=== PATIENT | male | born 1965 | race Caucasian/White ===

== ENCOUNTER 2024-01-17 13:07 | Inpatient (IN) | payer OTHER ==
[2024-01-17 14:20] VITALS: BMI 23.9
[2024-01-17] MEDS ORDERED: guaiFENesin 600 MG TABLET.ER (FP) PO PRN (18:25)
[2024-01-17] MEDS ORDERED: BENZONATATE 200 MG CAPSULE PO PRN (18:25)
[2024-01-17] MEDS ORDERED: IBUPROFEN 400 MG TABLET (FP) PO PRN (18:25)
[2024-01-17] MEDS ORDERED: ACETAMINOPHEN 325 MG TABLET (FP) PO PRN (18:25)
[2024-01-17] MEDS ORDERED: hydrOXYzine PAMOATE 25 MG CAPSULE (FP) PO PRN (18:25)
[2024-01-17] MEDS ORDERED: IBUPROFEN 600 MG TABLET (FP) PO PRN (18:25)
[2024-01-17] MEDS ORDERED: NICOTINE POLACRILEX 2 MG GUM BUC PRN (18:25)
[2024-01-17] MEDS ORDERED: MAG HYDROX/AL HYDROX/SIMETH 30 ML UNIT-DOSE CUP PO PRN (18:25)
[2024-01-17] MEDS ORDERED: POLYETHYLENE GLYCOL (HEALTHYLAX) 3350 17 GM PACKET PO PRN (18:25)
[2024-01-17] MEDS ORDERED: MAGNESIUM HYDROX 2400MG/30ML ORAL SUSPENSION 30 ML CUP PO PRN (18:25)
[2024-01-17] MEDS ORDERED: P-EPHED 60MG/TRIPROLIDI 2.5MG TABLET PO PRN (18:25)
[2024-01-17] MEDS ORDERED: BENZOCAINE/MENTHOL (CHLORASEPTIC ) LOZENGE MM PRN (18:25)
[2024-01-17] MEDS ORDERED: LOPERAMIDE HCL 2 MG CAPSULE PO PRN (18:25)
[2024-01-17] MEDS ORDERED: HYDROCORTISONE 0.5% TOPICAL CREAM 30 GM TUBE TP PRN (18:27)
[2024-01-17] MEDS ORDERED: levETIRAcetam 500 MG TABLET (FP) PO ONE (22:57)
[2024-01-17] MEDS ORDERED: MELATONIN 5 MG TABLETS ONE (22:58)
[2024-01-17] MEDS: THIAMINE HCL 100 MG TABLET (FP) PO SCH (23:04)
[2024-01-17] MEDS: MELATONIN 5 MG TABLETS PO SCH (23:04)
[2024-01-17] MEDS: levETIRAcetam 500 MG TABLET (FP) PO SCH (23:04)
[2024-01-17] MEDS: TUBERCULIN PPD 5 TU/0.1ML SYRINGE (IN PATIENT USE ONLY) ID ONE ×2 (23:32→23:33)
[2024-01-18] MEDS: PRENATAL VITAMINS W/ FOLIC ACID TABLET (FP) PO SCH (09:26)
[2024-01-18] MEDS: ACYCLOVIR 400 MG TABLET PO SCH (10:13)
[2024-01-18 13:02] LABS: HEMATOCRIT 29.6 % (35.4-49); HEMOGLOBIN 9.6 GM/dL (11.7-16.9); MCH 27.1 pg (25.7-33.7); MCHC 32.3 g/dl (32.0-35.9); MEAN CELL VOLUME 83.7 fl (80-96); MEAN PLT VOLUME 6.9 fl (7.5-11.1); PLATELET COUNT 425 10^3/uL (134-434); RBC 3.54 M/mm3 (4.00-5.60); RDW 17.3 % (11.9-15.9); WHITE BLOOD COUNT 5.7 K/mm3 (4.0-10.0)
[2024-01-18 13:18] LABS: POTASSIUM 4.3 mmol/L (3.5-5.1)
[2024-01-18 13:44] LABS: CALCIUM 7.9 mg/dL (8.5-10.1)
[2024-01-18 13:45] LABS: ALBUMIN 2.4 g/dl (3.4-5.0); BLOOD UREA NITROGEN 14.7 mg/dL (7-18)
[2024-01-18 13:48] LABS: CREATININE 0.8 mg/dL (0.55-1.3)
[2024-01-18 13:50] LABS: BILIRUBIN,TOTAL 0.2 mg/dL (0.2-1); TOT PROT 7.4 g/dl (6.4-8.2)
[2024-01-18 13:58] LABS: SYPHILIS W/ RPR CONF REACTIVE (NONREACTIVE)
[2024-01-19] MEDS ORDERED: AMMONIUM LACTATE 12% LOTION 225 GM BOTTLE TP PRN (13:39)
[2024-01-19] MEDS ORDERED: HYDROCORTISONE 0.5% TOPICAL CREAM 30 GM TUBE TP SCH (13:45)
[2024-01-19] MEDS: HYDROCORTISONE 0.5% TOPICAL CREAM 30 GM TUBE TP SCH (16:04)
[2024-01-19] MEDS: DOXYCYCLINE HYCLATE 100 MG TABLET PO SCH (17:22)
[2024-01-19] MEDS: BACITRACIN 0.9 GM PACKET TP SCH (21:31)
[2024-01-22] MEDS: CHOLECALCIFEROL (VIT D3) 400 UNIT (10 MCG) TABLET PO SCH (10:20)
[2024-01-23] MEDS: FERROUS SO4 325 MG TABLET (FP) PO SCH (10:09)
[2024-01-24 13:02] LABS: PH,URINE 6.5 (5.0-8.0); URINE APPEARANCE CLEAR; URINE BILIRUBIN NEGATIVE (NEGATIVE); URINE COLOR YELLOW; URINE GLUCOSE (UA) NEGATIVE (NEGATIVE); URINE KETONE NEGATIVE (NEGATIVE); URINE LEUK ESTERASE NEGATIVE (NEGATIVE); URINE NITRITE NEGATIVE (NEGATIVE); URINE PROTEIN NEGATIVE (NEGATIVE); URINE UROBILINOGEN 0.2 mg/dL (0.2-1.0)
[2024-01-26 09:24] VITALS: RESP 18
[2024-01-27 07:00] VITALS: BP 118/75; PULSE 83; TEMP 97.8
== END 2024-01-27 10:12 | disposition home or self-care (01) | DRG 772 ==
LOC: YASAS 13:07 → Y3W 22:36
PROVIDERS: ADMIT Allergy & Immunology; ATTEND Psychiatry & Neurology Pain Medicine
PROC: HZ42ZZZ Group Counseling for Substance Abuse Treatment, Cognitive-Behavioral (ICD-10-PCS; principal; 2024-01-17)
DX: F14.20 Cocaine dependence, uncomplicated (principal); F17.210 Nicotine dependence, cigarettes, uncomplicated; Z21 Asymptomatic human immunodeficiency virus [HIV] infection status; E72.20 Disorder of urea cycle metabolism, unspecified; G40.909 Epilepsy, unspecified, not intractable, without status epilepticus; E55.9 Vitamin D deficiency, unspecified; A60.9 Anogenital herpesviral infection, unspecified; N50.811 Right testicular pain; R76.8 Other specified abnormal immunological findings in serum; Z86.19 Personal history of other infectious and parasitic diseases; Z59.00 Homelessness unspecified
CPT/HCPCS: 36415; 80053; 80305; 81003; 82140; 82652; 83735; 85027; 86593; 86780; 86803; 87635; 87811; 93005; 93010

== ENCOUNTER 2024-03-30 15:39 | Inpatient (IN) | payer OTHER ==
[2024-03-30 16:44] VITALS: BMI 22.4
[2024-03-30] MEDS ORDERED: LOPERAMIDE HCL 2 MG CAPSULE PO PRN (18:02)
[2024-03-30] MEDS ORDERED: chlordiazePOXIDE HCL 25 MG CAPSULE PO PRN (18:02)
[2024-03-30] MEDS ORDERED: IBUPROFEN 600 MG TABLET (FP) PO PRN (18:02)
[2024-03-30] MEDS ORDERED: MAGNESIUM HYDROX 2400MG/30ML ORAL SUSPENSION 30 ML CUP PO PRN (18:02)
[2024-03-30] MEDS ORDERED: DICYCLOMINE HCL 10 MG CAPSULE PO PRN (18:02)
[2024-03-30] MEDS ORDERED: MAG HYDROX/AL HYDROX/SIMETH 30 ML UNIT-DOSE CUP PO PRN (18:02)
[2024-03-30] MEDS ORDERED: BENZONATATE 200 MG CAPSULE PO PRN (18:02)
[2024-03-30] MEDS ORDERED: NALOXONE HCL 0.4 MG/ML VIAL IM PRN (18:02)
[2024-03-30] MEDS ORDERED: BENZOCAINE/MENTHOL (CHLORASEPTIC ) LOZENGE MM PRN (18:02)
[2024-03-30] MEDS ORDERED: NALOXONE HCL (KLOXXADO) 8 MG SPRAY NS PRN (18:02)
[2024-03-30] MEDS ORDERED: ONDANSETRON *ODT* 4 MG TABLET SL PRN (18:02)
[2024-03-30] MEDS ORDERED: hydrOXYzine PAMOATE 25 MG CAPSULE (FP) PO PRN (18:02)
[2024-03-30] MEDS ORDERED: POLYETHYLENE GLYCOL (HEALTHYLAX) 3350 17 GM PACKET PO PRN (18:02)
[2024-03-30] MEDS ORDERED: guaiFENesin 600 MG TABLET.ER (FP) PO PRN (18:02)
[2024-03-30] MEDS ORDERED: BISMUTH SUBSALICYLATE 524 MG/30 ML PO PRN (18:02)
[2024-03-30] MEDS: ACETAMINOPHEN 325 MG TABLET (FP) PO PRN (19:09)
[2024-03-30] MEDS: cloNIDine HCL 0.1 MG TABLET PO ONE (19:38)
[2024-03-30] MEDS: chlordiazePOXIDE HCL 25 MG CAPSULE PO SCH (22:57)
[2024-03-30] MEDS: MELATONIN 5 MG TABLETS PO SCH (22:57)
[2024-03-30] MEDS: levETIRAcetam 500 MG TABLET (FP) PO SCH (22:57)
[2024-03-30] MEDS: THIAMINE 100 MG TABLET PO SCH (22:57)
[2024-03-31] MEDS: BICTEGRAV/EMTRICIT/TENOFOV (BIKTARVY) 50-200-25 MG TABLET PO SCH (09:30)
[2024-03-31] MEDS: PRENATAL VITAMINS W/ FOLIC ACID TABLET (FP) PO SCH (09:30)
[2024-03-31 11:56] LABS: HEMATOCRIT 32.9 % (35.4-49); HEMOGLOBIN 11.1 GM/dL (11.7-16.9); MCH 29.3 pg (25.7-33.7); MCHC 33.6 g/dl (32.0-35.9); MEAN CELL VOLUME 87.2 fl (80-96); MEAN PLT VOLUME 7.2 fl (7.5-11.1); PLATELET COUNT 262 10^3/uL (134-434); RBC 3.77 M/mm3 (4.00-5.60); RDW 20.7 % (11.9-15.9); WHITE BLOOD COUNT 5.7 K/mm3 (4.0-10.0)
[2024-03-31 11:59] LABS: CHLORIDE 108 mmol/L (98-107); POTASSIUM 3.4 mmol/L (3.5-5.1); SODIUM 140 mmol/L (136-145)
[2024-03-31 12:09] LABS: CALCIUM 8.5 mg/dL (8.5-10.1)
[2024-03-31 12:11] LABS: ANION GAP 4 mmol/L (4-13); BLOOD UREA NITROGEN 18.2 mg/dL (7-18); CO2 27 mmol/L (21-32); CREATININE 0.8 mg/dL (0.55-1.3); GLUCOSE,RANDOM 100 mg/dL (74-106)
[2024-03-31 12:13] LABS: TOT PROT 7.1 g/dl (6.4-8.2)
[2024-03-31 12:14] LABS: ALBUMIN 2.9 g/dl (3.4-5.0); ALK PHOS 47 U/L (45-117); SGOT/AST 20 U/L (15-37)
[2024-03-31 12:17] LABS: SGPT/ALT 19 U/L (13-61)
[2024-03-31 12:21] LABS: BILIRUBIN,TOTAL 0.4 mg/dL (0.2-1)
[2024-03-31] MEDS: POTASSIUM CHLORIDE ORAL LIQUID 20 MEQ/15 ML PO ONE ×3 (13:39→13:42)
[2024-03-31] MEDS: P-EPHED 60MG/TRIPROLIDI 2.5MG TABLET PO PRN (19:28)
[2024-03-31] MEDS: PENICILLIN G BENZATHINE 2,400,000 UNIT/4 ML PFS IM ONE (19:30)
[2024-03-31] MEDS: METHOCARBAMOL 500 MG TABLET PO PRN (20:35)
[2024-03-31] MEDS: POTASSIUM CHLORIDE ORAL LIQUID 20 MEQ/15 ML PO SCH (22:51)
[2024-04-01] MEDS: chlordiazePOXIDE HCL 25 MG CAPSULE PO SCH (06:12)
[2024-04-01] MEDS: IBUPROFEN 400 MG TABLET (FP) PO PRN (09:44)
[2024-04-02] MEDS ORDERED: chlordiazePOXIDE HCL 10 MG CAPSULE PO PRN
[2024-04-02] MEDS: chlordiazePOXIDE HCL 10 MG CAPSULE PO SCH (05:49)
[2024-04-02 07:46] LABS: PH,URINE 6.5 (5.0-8.0); URINE APPEARANCE CLEAR; URINE BILIRUBIN NEGATIVE (NEGATIVE); URINE COLOR YELLOW; URINE GLUCOSE (UA) NEGATIVE (NEGATIVE); URINE KETONE TRACE (NEGATIVE); URINE LEUK ESTERASE NEGATIVE (NEGATIVE); URINE NITRITE NEGATIVE (NEGATIVE); URINE PROTEIN NEGATIVE (NEGATIVE)
[2024-04-02 21:15] VITALS: RESP 16
[2024-04-03] MEDS: chlordiazePOXIDE HCL 10 MG CAPSULE PO SCH (05:36)
[2024-04-03 09:31] VITALS: BP 106/67; PULSE 94; TEMP 100.5
[2024-04-04] MEDS ORDERED: chlordiazePOXIDE HCL 10 MG CAPSULE PO ONE (05:00)
== END 2024-04-03 12:05 | disposition home or self-care (01) | DRG 774 ==
LOC: YASAS 15:39 → Y6N 18:27
PROVIDERS: ADMIT Allergy & Immunology; ATTEND Surgery
PROC: HZ2ZZZZ Detoxification Services for Substance Abuse Treatment (ICD-10-PCS; principal; 2024-03-30)
DX: F10.230 Alcohol dependence with withdrawal, uncomplicated (principal); F14.20 Cocaine dependence, uncomplicated; F17.210 Nicotine dependence, cigarettes, uncomplicated; F31.9 Bipolar disorder, unspecified; Z21 Asymptomatic human immunodeficiency virus [HIV] infection status; E87.6 Hypokalemia; J06.9 Acute upper respiratory infection, unspecified; R50.9 Fever, unspecified; A53.9 Syphilis, unspecified; A60.9 Anogenital herpesviral infection, unspecified; Z79.899 Other long term (current) drug therapy; Z59.02 Unsheltered homelessness
CPT/HCPCS: 0241U-QW; 36415; 80053; 80305; 80307; 81003; 84132; 85027; 86593; 86780; 87086